=== PATIENT | female | born 1970 | race Caucasian/White ===

== ENCOUNTER → 2020-07-07 | Outpatient (CLI) | payer OTHER ==
--- NOTE | 2020-07-07 13:33 | XR ---
EXAMINATION TYPE: XR chest 2V DATE OF EXAM: 07/07/2020 COMPARISON: None INDICATION: Cough x3 years TECHNIQUE: Frontal and lateral views of the chest are obtained. FINDINGS: The heart size is normal. The pulmonary vasculature is normal. There is a 1.2 cm nodule within the right upper lobe. CT chest recommended for additional evaluation. . IMPRESSION: 1. 1.2 cm right upper lobe nodule. CT chest recommended for additional evaluation. Neoplasm not exclu ded. A Yellow level critical message alert has been initiated for Boni Montes De Oca MD via the [employer] Critical Results System on 07/07/2020 1:31 PM. This message alert has been sent to Boni Montes De Oca MD via the preferences provided by the clinician for the receipt of Radiology Critical Findings. Message ID [id number].
== END | disposition home or self-care (01) ==
LOC: RADXRMAIN 11:53
PROVIDERS: ATTEND Internal Medicine Geriatric Medicine
DX: R91.1 Solitary pulmonary nodule (principal); D49.89 Neoplasm of unspecified behavior of other specified sites
CPT/HCPCS: 71046

== ENCOUNTER → 2020-07-10 | Outpatient (CLI) | payer OTHER ==
--- NOTE | 2020-07-10 08:55 | CT ---
EXAMINATION TYPE: CT chest w con DATE OF EXAM: 07/10/2020 COMPARISON: Chest x-ray 3 days ago HISTORY: solitary pulmonary nodule, abnormal chest x-ray. Cough for [address] DLP: 635.3 mGycm. Automated Exposure Control for Dose Reduction was Utilized. TECHNIQUE: CT scan of the thorax is performed following with IV Contrast, patient injected with 100 mL of Isovue 300. MIP Images are created on CT scanner and reviewed. 3D reconstructed images are cre ated on an independent workstation and reviewed. FINDINGS: LUNGS: Corresponding to x-ray there is confirmation of anterior 1.3 x 1.1 cm right upper lobe nodule image 15. Better seen on CT versus x-rays are additional scattered pulmonary nodules bilaterally. The re is posterior medial right upper lobe nodule measuring 1.7 x 1.5 cm axial image 17. There is right basilar 2.1 x 1.9 cm nodule axial image 40. Smaller left-sided pulmonary nodules are present, largest measures 1.2 x 1.2 cm anterior left upper lobe axial image 20. Now pleural effusion or pneumothorax seen bilaterally. No suspicious focal consolidation. Tracheobron chial tree patent. MEDIASTINUM: There is enlarged right hilar lymph node measuring 1.9 x 1.4 cm axial image 22. There is enlarged subcarinal 1.9 x 1.2 cm lymph node axial image 23. Additional suspicious scattered mediasti nal lymph nodes, there is a 1.5 x 1.2 cm pericarinal lymph node noted for reference axial image 20. S uspicious prevascular lymph node axial image 20. No cardiomegaly or pericardial effusion is seen. OTHER: Visualized liver is enlarged in size and markedly heterogeneously hypodense. Spleen is borderl ine mildly enlarged in size at 12.9 cm long axis coronal image 64. Mild/moderate multilevel spurring of the thoracic spine. Posterior spur disc complex effacing the anterior thecal sac at T8-T9 level sa gittal image 54. IMPRESSION: Multiple pulmonary nodules and abnormal thoracic adenopathy worrisome for metastatic neop lasm. Further clinical workup advised. Consider colon and/or breast primary. PET CT follow-up may be beneficial. A Yellow level critical message alert has been initiated for Boni Montes De Oca MD via the [employer] Critical Results System on 07/10/2020 8:52 AM. This message alert has been sent to Boni Montes De Oca MD via the preferences provided by the clinician for the receipt of Radiology Critical Findings. Message ID [id number].
== END | disposition home or self-care (01) ==
LOC: RADCTMAIN 08:10
PROVIDERS: ATTEND Internal Medicine Geriatric Medicine
DX: R91.8 Other nonspecific abnormal finding of lung field (principal); R59.0 Localized enlarged lymph nodes
CPT/HCPCS: 71260; Q9967

== ENCOUNTER → 2020-07-15 | Outpatient (CLI) | payer OTHER ==
[2020-07-15 15:27] LABS: African American GFR (CKD) >90 (>60 ml/min/1.73 sqM); Blood Urea Nitrogen 15 mg/dL (7-17); Non-African American GFR(CKD) >90 (>60 ml/min/1.73 sqM)
--- NOTE | 2020-07-15 21:39 | CT ---
EXAMINATION TYPE: CT abdomen pelvis wo/w con DATE OF EXAM: 07/15/2020 COMPARISON: CT chest 07/10/2020 INDICATION: c/o back pain DLP: 3996.4 mGycm, Automated exposure control for dose reduction was used. CONTRAST: 100 mL of Isovue 300. Study performed with Oral Contrast TECHNIQUE: Axial images were obtained from above the diaphragm to the pubic rami in the axial plane a t 5 mm thick sections. Reconstructed images are reviewed on the computer in the coronal plane. FINDINGS: Limited CT sections are obtained the lung bases. There is a 1.9 cm right basilar nodule. A small 0.7 cm nodules in the left lung base.. CT ABDOMEN: Liver: Moderate fatty infiltration is to the liver. No discrete masses are evident. Spleen: Normal there is a calcification adjacent to the spleen. Pancreas: Normal Adrenal glands: The adrenal glands are normal. Gallbladder: Normal Kidneys: No masses are evident. No hydronephrosis is present. No cysts are present. No renal stone s are evident. Delayed images through the kidney are unremarkable. Aorta: Normal Inferior vena cava: Normal. CT PELVIS: Loops of bowel within the abdomen and pelvis are normal. There are loops of bowel with incomplete distention or lack oral contrast limiting their evaluation. Appendix: Normal as visualized. Urinary bladder: Normal. Genitourinary structures: Uterus is normal. Adnexal regions are clear. Surgical clips are in the nicholas on of the broad ligaments. Osseous structures: No suspicious lytic or sclerotic lesions. IMPRESSIONS: 1. Lung base nodules. Please also see CT chest 07/10/2020. 2. Moderate fatty infiltration to the liver.
== END | disposition home or self-care (01) ==
LOC: RADCTMAIN 14:39
PROVIDERS: ATTEND Family Medicine
DX: K76.0 Fatty (change of) liver, not elsewhere classified (principal)
CPT/HCPCS: 82565; 84520; 74178; 36415; Q9967

== ENCOUNTER → 2023-01-16 | Outpatient (CLI) | payer BC ==
--- NOTE | 2023-01-16 07:58 | US ---
EXAMINATION TYPE: US abdomen complete DATE OF EXAM: 01/16/2023 COMPARISON: 07/15/2020 CLINICAL INDICATION: Female, 52 years old with history of R10.9 UNSPECIFIED ABDOMINAL PAIN; generaliz ed abdomen pain. NPO. TECHNIQUE: Multiple sonographic images of the abdomen are obtained. FINDINGS: EXAM MEASUREMENTS: Liver Length: 23.8 cm Gallbladder Wall: 0.25 cm CBD: 0.4 cm Spleen: 12.2 cm Right Kidney: 11.3 x 5.6 x 4.5 cm Left Kidney: 11.9 x 5.1 x 4.7 cm Pancreas: Head and tail obscured by overlying bowel gas Liver: Enlarged in size. Heterogenous. Gallbladder: No stones or sludge visualized. Evidence for sonographic Cohn's sign: neg CBD: wnl Spleen: wnl Right Kidney: No hydronephrosis or masses seen Left Kidney: No hydronephrosis or masses seen Upper IVC: wnl Abd Aorta: Limited distal visualized The liver is heterogenous with increased echotexture. The intrahepatic portion of the IVC and proxim al abdominal aorta are within normal limits. There is no evidence of cholelithiasis. Common bile du ct is unremarkable. The visualized portions of the pancreas are homogenous. The spleen is unremarka ble. Kidneys are symmetric and free of hydronephrosis. No renal lesions are seen. IMPRESSION: Hepatic steatosis.
== END | disposition home or self-care (01) ==
LOC: RADUSWWP 06:49
PROVIDERS: ATTEND Internal Medicine Geriatric Medicine
DX: K76.0 Fatty (change of) liver, not elsewhere classified (principal); R10.84 Generalized abdominal pain
CPT/HCPCS: 76700